=== PATIENT | male | born 2005 | race Caucasian/White ===

== ENCOUNTER 2023-06-19 13:47 | Inpatient (IN) | payer MEDICAID, OTHER ==
--- NOTE | 2023-06-19 16:23 | ED ---
Psych HPI - General Chief Complaint: Psychiatric Symptoms Stated Complaint: alt mental state Source: patient, family, RN notes reviewed Mode of arrival: ambulatory - History of Present Illness Initial Comments: PatientPatient presents with suicidal thoughts. Patient states he considered overdosing yesterday. Denies any homicidality. No recent illness. Long history of substance abuse. Has not used in several weeks.He denies any homicidality. No recent ingestion of alcohol or illicit drugs. No headache, no fever or chills, no changes in vision or hearing, no sore throat or difficulty with speech, no neck pain, no chest pain or shortness of breath, no abdominal pain, no nausea or vomiting, no changes in urination or bowel movements, no numbness or tingling, no extremity pain, no skin rashes or lesions. Past medical, surgical, social, and family history reviewed. Complaint: suicidal ideation - Related Data Allergies Allergy/AdvReac Type Severity Reaction Status Date / Time Penicillins Allergy Rash/Hives Verified 06/19/23 13:53 Review of Systems ROS Statement: Those systems with pertinent positive or pertinent negative responses have been documented in the HPI. ROS Other: All systems not noted in ROS Statement are negative. Past Medical History Past Medical History: No Reported History Past Surgical History: No Surgical Hx Reported Past Psychological History: Depression Smoking Status: Current every day smoker Past Alcohol Use History: Heavy Past Drug Use History: Prescription Drug Abuse General Exam - General Exam Comments Initial Comments: Does not appear to be ill or toxic. Alert and oriented 4, cranial nerves II through XII grossly intact. Limitations: no limitations General appearance: alert, in no apparent distress Head exam: Present: atraumatic, normocephalic, normal inspection Eye exam: Present: normal appearance, PERRL, EOMI. Absent: scleral icterus, conjunctival injection, periorbital swelling ENT exam: Present: normal exam, mucous membranes moist Neck exam: Present: normal inspection. Absent: tenderness, meningismus, lymphad enopathy Respiratory exam: Present: normal lung sounds bilaterally. Absent: respiratory distress, wheezes, rales, rhonchi, stridor Cardiovascular Exam: Present: regular rate, normal rhythm, normal heart sounds. Absent: systolic murmur, diastolic murmur, rubs, gallop, clicks GI/Abdominal exam: Present: soft, normal bowel sounds. Absent: distended, tenderness, guarding, rebound, rigid Extremities exam: Present: normal inspection, full ROM, normal capillary refill. Absent: tenderness, pedal edema, joint swelling, calf tenderness Back exam: Present: normal inspection Neurological exam: Present: alert, oriented X3, CN II-XII intact Psychiatric exam: Present: normal affect, normal mood Skin exam: Present: warm, dry, intact, normal color. Absent: rash Course Vital Signs 06/19/23 13:50 Temperature 98 F Pulse Rate 82 Respiratory 20 Rate Blood Pressure 150/100 O2 Sat by Pulse 98 Oximetry Medical Decision Making - Medical Decision Making Visual Physical Exam Vital signs reviewed General: Well-appearing, nontoxic, no acute distress. Head: Normocephalic, atraumatic Eyes: PERRLA, EOMI ENT: Airway patent Chest: Nonlabored breathing Skin: No visual rash, normal skin tone Neuro: Alert and oriented 3 Musculoskeletal: No gross abnormalities Signed, Jayro Moreno PA-C Was pt. sent in by a medical professional or institution? @ -[No] Did you speak to anyone other than the patient for history? @ -EPS nurse, mother Did you review nursing and triage notes? @ -agree Were old charts reviewed? @ -no Differential Diagnosis? @ -Differential diagnosis includes but not limited to: Depression, bipolar disorder, other psychiatric disorder, suicidal ideation, suicidal thoughts. Does not appear to be consistent with other systemic disease. EKG interpreted by me (3pts min.)? @ -[none] X-rays interpreted by me (1pt min.)? @ -[none] CT interpreted by me (1pt min.)? @ -[none] U/S interpreted by me (1pt. min.)? @ -[none] What testing was considered but not performed? (CT, X-rays, U/S, labs)? Why? @ Baseline laboratory investigations such as CBC, CMP. However I did not feel this would change clinical course or disposition. What meds were considered but not given? Why? @ -[none] Did you discuss the management of the patient with other professionals? @ -[facility] nurse Did you reconcile home meds? @ -[none] Was smoking cessation discussed for >3mins.? @ -[none] Was critical care preformed (if so, how long)? @ -[none] Were there social determinants of health that impacted care today? How? (Homelessness, low income, unemployed, alcoholism, drug addiction, transportation, low edu. Level, literacy, decrease access to med. care, correction, rehab)? @ -Depression, suicidal ideation Was there de-escalation of care discussed even if they declined? (Discuss DNR or withdrawal of care, Hospice)? @ -[Discuss DNR or withdrawal of care, Hospice?] What co-morbidities impacted this encounter? (DM, HTN, Smoking, COPD, CAD, Cancer, CVA, Hep., AIDS, mental health diagnosis, sleep apnea, morbid obesity)? @ - Was patient admitted / discharged? @ -Stable, admitted Undiagnosed new problem with uncertain prognosis? @ -Depression, suicidal ideation, uncertain prognosis Drug Therapy requiring intensive monitoring for toxicity (Heparin, Nitro, Insulin, Cardizem)? @ -[none] Were any procedures done? @ -[none] Diagnosis/symptom? @ -Suicidal ideation, depression Acute, or Chronic, or Acute on Chronic? @ -Acute/acute on chronic Uncomplicated (without systemic symptoms) or Complicated (systemic symptoms)? @ -Certainly could be a threat to life or bodily function if progressive Side effects of treatment? @ -[none] Exacerbation, Progression, or Severe Exacerbation] @ -[no] Poses a threat to life or bodily function? @ -See above patient voluntarily stating, unlikely. At this time. Patient admitted for a significantly. After discussion with the. Patient signed willingly. Patient's mother arrived to add an additional details for the EPS nurse Disposition Clinical Impression: Depression, Suicidal ideation Disposition: TRANSFER TO PSYCH HOSP/UNIT Condition: Stable Is patient prescribed a controlled substance at d/c from ED?: No When asked, does pt state using other controlled substances?: No If prescribed controlled substance>3 days was MAPS reviewed?: No If opioid is for acute pain is fill amount 7 days or less?: No If Rx opioid, was Start Talking consent form obtained?: No Referrals: Mary Ellen Parks MD [Primary Care Provider] - 1-2 days
[2023-06-19] MEDS ORDERED: MAGNESIUM HYDROXIDE 2,400 MG/30 ML CUP PO PRN (23:23)
[2023-06-19] MEDS ORDERED: ACETAMINOPHEN TAB 325 MG TAB PO PRN (23:23)
[2023-06-19] MEDS ORDERED: MAG HYDROX/AL HYDROX/SIMETH 30 ML CUP PO PRN (23:23)
[2023-06-19] MEDS ORDERED: HALOPERIDOL LACTATE 5 MG/ML 1 ML VIAL IM PRN (23:25)
[2023-06-19] MEDS ORDERED: LORazepam 2 MG/ML INJ IM PRN (23:25)
[2023-06-19] MEDS ORDERED: traZODone HCL 50 MG TAB PO PRN (23:25)
[2023-06-19] MEDS ORDERED: LORazepam 1 MG TAB PO PRN (23:25)
[2023-06-19] MEDS ORDERED: haloperidoL 5 MG TAB PO PRN (23:25)
--- NOTE | 2023-06-20 02:11 | P.PN ---
Progress Note - Text Progress Note Date: 06/20/23 Attempted to see the patient in the mental health unit. Informed by the mental health unit RN that the patient is currently sedated and inappropriate for evaluation.
[2023-06-20] MEDS: NICOTINE 14MG/24HR PATCH TRANSDERM SCH (08:46)
[2023-06-20 11:23] LABS: Basophils % (A) 0 %; Eosinophils # (A) 0.1 k/uL (0-0.7); Eosinophils % (A) 1 %; HCT 49.1 % (39.0-53.0); HGB 16.7 gm/dL (13.0-17.5); Lymphocytes # (A) 1.7 k/uL (1.0-4.8); Lymphocytes % (A) 24 %; MCH 30.5 pg (25.0-35.0); MCHC 34.1 g/dL (31.0-37.0); MCV 89.4 fL (80.0-100.0); Mean Platelet Volume 7.4; Monocytes # (A) 0.5 k/uL (0-1.0); Monocytes % (A) 7 %; Neutrophils # (A) 4.8 k/uL (1.3-7.7); Neutrophils % (A) 66 %; Platelet Count 313 k/uL (150-450); RDW 12.1 % (11.5-15.5); WBC 7.2 k/uL (4.0-11.0)
--- NOTE | 2023-06-20 11:25 | P.HP ---
Psychiatric H&P - . H&P Date: 06/20/23 History & Physical: Allergies Allergy/AdvReac Type Severity Reaction Status Date / Time Penicillins Allergy Rash/Hives Verified 06/19/23 13:53 Vital Signs Temp 98.1 F 06/20/23 00:18 Pulse 72 06/20/23 00:18 Resp 18 06/20/23 00:18 BP 136/92 06/20/23 00:18 Pulse Ox 100 06/20/23 00:18 FiO2 Intake & Output 06/19/23 06/20/23 06/20/23 18:59 06:59 18:59 Weight 79.379 kg 79.435 kg Laboratory Last Values SARS-CoV-2 (PCR) Not Detected (Not Detectd) 06/19/23 20:59 06/20/23 09:40 IDENTIFYING DATA: Patient is a 17 y/o male, lives with his father in a house, in [facility] [place], single, no kids, employed as a contractor HPI: Patient presented to the hospital ED on 06/19, with suicidal thoughts, considering overdosing. He walked to the ED, stating he needed help. Patient claims that he "kind of lost his mind a little bit" States he was paranoid, having a flight of ideas, and swallowed a "bunch of percocets" Approx 10-12 pills, and vomited them up. Stressors include "losing his best friend" admits to being a heavy user of xanax, and quit cold turkey about 3 weeks ago. states that he is using up to 7 mg total a day of xanax. Has been using them about 5 years. Patient has pending court cases coming up for theft which is causing him stress. Claims his mood today is "mellow" and feeling somewhat depressed and anxious. States his sleep is "ok", prior to last night, he couldn't sleep, appetite is poor. Patient denies any suicidal or homicidal ideations intent or plan. At this time patient denies any auditory or visual hallucinations. Patient denies any flight of ideas racing thoughts and increased in goal directed behavior. Patient admits to using xanax,alcohol occasionally, marijuama occasionally. and is a smoker. Long history of substance abuse. Patient was counselled on substance abuse and desired to cut back on use PAST PSYCHIATRIC HISTORY:denies, however states that he was diagnosed with severe depression at age 14, and tried Lexapro, and took it about a year, and felt it didn't help. denies any previous suicide attempts. no inpatiwent psych admissions. PMH: as per ED note. ALLERGIES: as per EMR CHEMICAL DEPENDENCY HISTORY: as per HPI FAMILY PSYCHIATRIC/SUBSTANCE USE HISTORY: dads side has depression/bipolar. paternal Grandfather committed suicide SOCIAL HISTORY: Patient was born in [place], raised in [place]. High School Graduate, never incarcerated, Patient has pending court cases coming up for theft. . Works as a contractor, lives with his father in [place] in a house. No children. MENTAL STATUS EXAM: General Appearance: Patient appears to be stated age is alert, short hair, childers. acme. well groomed, directable, and attempts to cooperate. Patient appears to have good hygiene and grooming.Good eye contact. Behavior: Patient is seated without any agitated behavior. Speech: Patient's speech is fluent and nonpressured. Mood/Affect: Patient reports their mood is depressed, affect is congruent and appropriate. Suicidality/Homicidality: Patient denies having any homicidal ideation intent or plan. Denies any suicidal ideations intent or plan Perceptions: Patient denies any visual hallucinations and denies any auditory hallucinations Though content/process: There is no evidence of any delusional thought content and thought process is linear and goal-directed. Memory and concentration: AOX3, grossly intact for the purposes of this session. Can spell "WORLD" backwards Judgment and insight: poor STRENGTHS/WEAKNESSES: strength is that patient is resilient. Weakness is that patient has poor judgment and is impulsive INTELLECT: average IMPRESSIONS: major depressive disorder with out psychotic features Benzodiazipine disorder opioid abuse Cannabis use disorder, mild nicotine dependance. PLAN: -Patient is admitted under voluntary status to MHU for stabilization of psychiatric symptoms and safety. Patient has signed adult voluntary form and medication consent and is placed in patient's chart. -Medications : Will start patient on trazadone 50 qhs for sleep/mood Zoloft 50mg daily for mood stabilization -Ativan [and Haldol] PRN for agitation/aggression -Patient was counselled on substance abuse and desired to cut back on use] -Patient was informed of the risks, benefits and side effects of the medication and patient verbally consented to taking the medications. Patient signed med consent form and was placed in chart. -Internal Medicine consult to perform medical evaluation and physical. -NRT - [nicotine patch] -SW on board for discharge planning. Encourage patient to participate in groups to work on coping skills. 06/20/23 11:21
[2023-06-20 11:43] LABS: ALT 17 U/L (4-49); AST 22 U/L (17-59); African American GFR (CKD) >90 (>60 ml/min/1.73 sqM); Albumin 5.4 g/dL (3.5-5.0); Alkaline Phosphatase 98 U/L (38-126); Anion Gap 17 mmol/L; Blood Urea Nitrogen 21 mg/dL (9-20); Calcium 10.6 mg/dL (8.4-10.2); Carbon Dioxide 22 mmol/L (22-30); Chloride 101 mmol/L (98-107); Glucose 93 mg/dL (74-99); Non-African American GFR(CKD) >90 (>60 ml/min/1.73 sqM); Potassium 4.4 mmol/L (3.5-5.1); Sodium 140 mmol/L (137-145); Total Bilirubin 0.9 mg/dL (0.2-1.3); Total Protein 8.5 g/dL (6.3-8.2)
[2023-06-20] MEDS: SERTRALINE 50 MG TAB PO SCH (12:22)
[2023-06-20] MEDS ORDERED: traZODone HCL 50 MG TAB PO SCH (21:00)
--- NOTE | 2023-06-21 01:48 | P.CONS ---
History of Present Illness - Reason for Consult Consult date: 06/21/23 - History of Present Illness The patient is a 17-year-old male with no known PMH who presents to the emergency room with complaints of depression and suicidal ideation. The patient was admitted to the mental health unit where he was seen and evaluated. Patient states that he has been abusing Xanax for the past several years, consuming 6 mg a day. Reports that he quit roughly 2 weeks ago and then had a manic episode. He reports feeling better at the time of interview and had no active complaints. He denies any medical conditions. Also denies alcohol or tobacco use. Denies experiencing chest discomfort, shortness of breath, fever, chills, cough, nausea, vomiting, abdominal pain, diarrhea. Review of systems: Pertinent positives and negatives as discussed in HPI, a complete review of systems was performed and all other systems are negative. Physical examination: General: non toxic, no distress, appears at stated age, normal weight Derm: no unusual rashes/lesions, no unusual ecchymoses, warm, dry Head: atraumatic, normocephalic, symmetric Eyes: EOMI, no lid lag, anicteric sclera ENT: Nose and ears atraumatic, no thrush, no pharyngeal erythema Neck: trachea midline, supple Mouth: no lip lesion, mucus membranes moist Cardiovascular: S1S2 reg, no murmur, no edema Lungs: CTA bilateral, no rhonchi, no rales , no accessory muscle use Abdominal: soft, nontender to palpation, no guarding Ext: no gross muscle atrophy, no contractures, Neuro: No gross focal neuro deficits noted Psych: Alert, oriented, appropriate affect Assessment: Benzodiazepine abuse Depression and suicidal ideation Imaging: None performed Data Review: Laboratory evaluation was reviewed with TSH 1.080, BUN 21, and calcium 10.6 Plan: Patient currently 2 weeks out from his last Xanax use Advised on importance of continued cessation Defer management of depression and suicidal ideation to the primary psychiatry service Thank you for allowing us to participate in the care of this patient. We will follow peripherally. Do not hesitate to contact us with questions. Someone can be reached from the [facility] hospitalist group at all hours of the day at [phone]. Past Medical History Past Medical History: No Reported History History of Any Multi-Drug Resistant Organisms: None Reported Past Surgical History: No Surgical Hx Reported Past Anesthesia/Blood Transfusion Reactions: No Reported Reaction Past Psychological History: Depression Smoking Status: Vaper Past Alcohol Use History: Occasional Past Drug Use History: Prescription Drug Abuse - Past Family History Father Family Medical History: No Reported History Mother Family Medical History: No Reported History Medications and Allergies Allergies Allergy/AdvReac Type Severity Reaction Status Date / Time Penicillins Allergy Rash/Hives Verified 06/19/23 13:53 Results CBC & Chem 7: 06/20/23 10:47 06/20/23 10:47 Labs: Abnormal Lab Results - Last 24 Hours (Table) 06/20/23 Range/Units 10:47 BUN 21 H (9-20) mg/dL Calcium 10.6 H (8.4-10.2) mg/dL Total Protein 8.5 H (6.3-8.2) g/dL Albumin 5.4 H (3.5-5.0) g/dL
[2023-06-21] MEDS: NICOTINE 14MG/24HR PATCH TRANSDERM SCH (08:15)
[2023-06-21] MEDS: SERTRALINE 50 MG TAB PO SCH (08:15)
[2023-06-21] MEDS ORDERED: hydrOXYzine pamoate 25 MG CAP PO PRN (10:56)
--- NOTE | 2023-06-21 11:07 | P.PN ---
Progress Note - Text Progress Note Date: 06/21/23 Interval History: Patient was seen wandering the hallways and was directable and agreeable to speak with medical technical writer in the office. [Patient states he's a little tired today, and that he had increased energy yesterday. Anxiety is "pretty damn bad", due to his upcoming court case, but his depression is improving. Appetite is ok, but is feeling a little nauseated. At this time patient denies any suicidal or homical ideations, intent or plan. Patient denies any auditory, visual hallucinations and denies any paranoia or delusions. Patient denies any side effects from the medications and has been compliant with meds. patient was asking about adding klonopin to help with anxiety, we spoke about the risks of tolerance/abuse given his history of xanax abuse, he was agreeable to try vistaril prn. Mental Status Exam: General Appearance: Patient appears to be stated age is alert, short hair, childers. acme. well groomed, directable, and attempts to cooperate. Patient appears to have good hygiene and grooming. Good eye contact. Behavior: Patient is calmly seated without any agitated behavior. Speech: Patient's speech is fluent and nonpressured. Mood/Affect: Mood is improving mildly, affect is congruent and appropriate Suicidality/Homicidality: Patient denies having any suicidal or homicidal ideation intent or plan. Perceptions: Patient denies any visual hallucinations and denies any auditory hallucinations Though content/process: There is no evidence of any delusional thought content and thought process is linear and goal-directed. 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 Plan: -Patient continues to meet criteria for inpatient psychiatric admission for symptom stabilization and safety. Patient has signed adult voluntary form and medication consent and was placed in patient's chart. -Medications: discontinue trazadone add Remeron 15 qhs for sleep, increase Zoloft 75mg daily for mood stabilization add Visteral 25mg [id number] prn for anxiety -When necessary Ativan and Haldol for agitation/aggression. -NRT - nicotine patch -SW on board for discharge planning. Encouraged the patient to participate in milieu. Likely discharge early next week saturday or saturday, if patient continues to improve.
[2023-06-21] MEDS: MIRTAZAPINE 15 MG TAB PO SCH (20:32)
[2023-06-22] MEDS: SERTRALINE 25 MG TAB PO SCH (08:38)
[2023-06-22] MEDS: NICOTINE 14MG/24HR PATCH TRANSDERM SCH ×2 (08:38→15:20)
--- NOTE | 2023-06-22 09:31 | P.PN ---
Progress Note - Text Progress Note Date: 06/22/23 Interval History: Patient was seen wandering the hallways and was directable and agreeable to speak with machine sign writer in the office. Patient has been socializing with other patients. He claims that he is doing better today, increasing energy. States that his anxiety has been improving since yesterday. He claims that he was able to sleep a bit better last night with the Remeron once his hands seem dose. Claims that he is going to groups. At this time patient denies any suicidal or homical ideations, intent or plan. Patient denies any auditory, visual hallucinations and denies any paranoia or delusions. Patient denies any side effects from the medications and has been compliant with meds. Mental Status Exam: General Appearance: Patient appears to be stated age is alert, short hair, childers. acme. well groomed, directable, and attempts to cooperate. Patient appears to have good hygiene and grooming. Good eye contact. Behavior: Patient is calmly seated without any agitated behavior. Speech: Patient's speech is fluent and nonpressured. Mood/Affect: Mood is improving mildly, affect is congruent and appropriate Suicidality/Homicidality: Patient denies having any suicidal or homicidal ideation intent or plan. Perceptions: Patient denies any visual hallucinations and denies any auditory hallucinations Though content/process: There is no evidence of any delusional thought content and thought process is linear and goal-directed. Memory and concentration: AOX3, grossly intact for the purposes of this session Judgment and insight: Improving mildly Assessment major depressive disorder with out psychotic features Benzodiazipine disorder opioid abuse Cannabis use disorder, mild nicotine dependance. Plan: -Patient continues to meet criteria for inpatient psychiatric admission for symptom stabilization and safety. Patient has signed adult voluntary form and medication consent and was placed in patient's chart. -Medications: continue Remeron 15 qhs for sleep, Zoloft 75mg daily for mood stabilization, Visteral 25mg [id number] prn for anxiety -When necessary Ativan and Haldol for agitation/aggression. -NRT - nicotine patch -SW on board for discharge planning. Encouraged the patient to participate in milieu. Likely discharge early next week saturday or saturday, if patient continues to improve.
[2023-06-22] MEDS: MIRTAZAPINE 15 MG TAB PO SCH (19:50)
[2023-06-23] MEDS: NICOTINE 14MG/24HR PATCH TRANSDERM SCH (08:24)
[2023-06-23] MEDS: SERTRALINE 25 MG TAB PO SCH (08:24)
[2023-06-23] MEDS ORDERED: LORazepam 0.5 MG TAB PO PRN (11:17)
--- NOTE | 2023-06-23 11:23 | P.PN ---
Progress Note - Text Progress Note Date: 06/23/23 Interval History: Patient was seen wandering the hallways and was directable and agreeable to speak with television writer in the office. Patient claims that he has been attending groups and has been watching TV with them and the other patients today. Claims that with regards to his mood he is doing better and also his anxiety as well. He did take an Ativan when necessary yesterday. We spoke about increasing the Zoloft dose 200 mg tomorrow and he is okay with that. Claims that he is sleeping better with the Remeron. Appetite is improving. At this time patient denies any suicidal or homical ideations, intent or plan. Patient denies any auditory, visual hallucinations and denies any paranoia or delusions. Patient denies any side effects from the medications and has been compliant with meds. Mental Status Exam: General Appearance: Patient appears to be stated age is alert, short hair, childers. acme. well groomed, directable, and attempts to cooperate. Patient appears to have good hygiene and grooming. Good eye contact. Behavior: Patient is calmly seated without any agitated behavior. Speech: Patient's speech is fluent and nonpressured. Mood/Affect: Mood is improving mildly, affect is congruent and appropriate Suicidality/Homicidality: Patient denies having any suicidal or homicidal ideation intent or plan. Perceptions: Patient denies any visual hallucinations and denies any auditory hallucinations Though content/process: There is no evidence of any delusional thought content and thought process is linear and goal-directed. Memory and concentration: AOX3, grossly intact for the purposes of this session Judgment and insight: Improving mildly Assessment major depressive disorder with out psychotic features Benzodiazipine disorder opioid abuse Cannabis use disorder, mild nicotine dependance. Plan: -Patient continues to meet criteria for inpatient psychiatric admission for symptom stabilization and safety. Patient has signed adult voluntary form and medication consent and was placed in patient's chart. -Medications: continue Remeron 15 qhs for sleep, increase Zoloft 100 mg daily for mood and anxiety, Visteral 25mg [id number] prn for anxiety -When necessary Ativan and Haldol for agitation/aggression. -NRT - nicotine patch -SW on board for discharge planning. Encouraged the patient to participate in milieu. Likely discharge saturday back home, if patient continues to improve. SW to call pts father and discuss safe home envt and discharge planning
[2023-06-23] MEDS: MIRTAZAPINE 15 MG TAB PO SCH (20:23)
[2023-06-24] MEDS: NICOTINE 14MG/24HR PATCH TRANSDERM SCH (08:08)
[2023-06-24] MEDS: SERTRALINE 100 MG TAB PO SCH (08:08)
[2023-06-24 08:25] VITALS: RESP 16
--- NOTE | 2023-06-24 11:53 | P.PN ---
Progress Note - Text Progress Note Date: 06/24/23 Interval History: Patient was seen wandering the hallways and was directable and agreeable to speak with publicity writer in the office. Patient claims that he has been attending groups. Claims that with regards to his mood he is "excellent" and also his anxiety getting better as well. Claims that he is sleeping alot better. Appetite much better, and is eating well. At this time patient denies any suicidal or homical ideations, intent or plan. Patient denies any auditory, visual hallucinations and denies any paranoia or delusions. Patient denies any side effects from the medications and has been compliant with meds. claims that he is speaking with his father over the phone about dishcarge possibly tomorrow Mental Status Exam: General Appearance: Patient appears to be stated age is alert, short hair, childers. acme. well groomed, directable, and attempts to cooperate. Patient appears to have good hygiene and grooming. Good eye contact. Behavior: Patient is calmly seated without any agitated behavior. Speech: Patient's speech is fluent and nonpressured. Mood/Affect: Mood is improving mildly, affect is congruent and appropriate Suicidality/Homicidality: Patient denies having any suicidal or homicidal ideation intent or plan. Perceptions: Patient denies any visual hallucinations and denies any auditory hallucinations Though content/process: There is no evidence of any delusional thought content and thought process is linear and goal-directed. Memory and concentration: AOX3, grossly intact for the purposes of this session Judgment and insight: Improving Assessment major depressive disorder with out psychotic features Benzodiazipine disorder opioid abuse Cannabis use disorder, mild nicotine dependance. Plan: -Patient continues to meet criteria for inpatient psychiatric admission for symptom stabilization and safety. Patient has signed adult voluntary form and medication consent and was placed in patient's chart. -Medications: Remeron 15 qhs for sleep, Zoloft 100 mg daily for mood and anxiety, Visteral 25mg [id number] prn for anxiety -When necessary Ativan and Haldol for agitation/aggression. -NRT - nicotine patch -SW on board for discharge planning. Encouraged the patient to participate in milieu. Likely discharge tomorrow, back home, if patient continues to improve. SW to call pts father and discuss safe home environment, and discharge planning
[2023-06-24] MEDS: MIRTAZAPINE 15 MG TAB PO SCH (20:27)
[2023-06-25 06:30] VITALS: BP 137/69; PULSE 80; TEMP 96.8
[2023-06-25] MEDS: SERTRALINE 100 MG TAB PO SCH (08:09)
[2023-06-25] MEDS: NICOTINE 14MG/24HR PATCH TRANSDERM SCH (08:10)
--- NOTE | 2023-06-25 12:34 | P.DS ---
Providers Date of admission: 06/19/23 23:09 Admission HPI: Admission note was completed by account underwriter Hospital course: Patient is a 17 y/o male, lives with his father in a house, in [facility], single, no kids, 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 He walked to the ED, stating he needed help. Patient claims that he "kind of lost his mind a little bit" States he was paranoid, having a flight of ideas, and swallowed a "bunch of percocets" Approx 10-12 pills, and vomited them up. Stressors include "losing his best friend" admits to being a heavy user of xanax, and quit cold turkey about 3 weeks ago. states that he is using up to 7 mg total a day of xanax. Has been using them about 5 years. Patient has pending court cases coming up for theft which is causing him stress. Claims his mood today is "mellow" and feeling somewhat depressed and anxious. States his sleep is "ok", prior to last night, he couldn't sleep, appetite is poor. Patient denies any suicidal or homicidal ideations intent or plan. At this time patient denies any auditory or visual hallucinations. Patient denies any flight of ideas racing thoughts and increased in goal directed behavior. Patient admits to using xanax,alcohol occasionally, marijuama occasionally. and is a smoker. Long history of substance abuse. Patient was counselled on substance abuse and desired to cut back on use Mental status exam: General Appearance: Patient appears to be stated age is alert, short hair, childers. acme. well groomed, directable, and attempts to cooperate. Patient appears to have good hygiene and grooming.Good eye contact. Behavior: Patient is calmly seated without any agitated behavior. Speech: Patient's speech is fluent and nonpressured. Mood/Affect: Patient reports their mood is depressed, improving, affect is congruent and appropriate Suicidality/Homicidality: Patient denies having any suicidal or homicidal ideation intent or plan. Perceptions: Patient denies any auditory or visual hallucinations. Though content/process: There is no evidence of any delusional thought content and thought process is linear and goal-directed. more future oriented. Memory and concentration: AOX3, grossly intact for the purposes of this session. Can spell "WORLD" backwards correctly. Judgment and insight: fair Impression: major depressive disorder with out psychotic features Benzodiazipine disorder opioid abuse Cannabis use disorder, mild nicotine dependance. Plan: -Continue with discharge today as patient has improved and stabilized psychiatrically and is not currently an imminent threat to himself and/or others. Patient will remain at chronically elevated risk for harm to self and/or others due to his impulsivity and polysubstance abuse. -Continue medications: Remeron 15 qhs for sleep, Zoloft 100 mg daily for mood and anxiety, Visteral 25mg [id number] prn for anxiety -Patient was counseled on the need for medication compliance and appropriate follow-up at mental health and also primary care for medical issues. Patient verbalized understanding and agreed. -Social work to [arrange for and conduct family meeting to ensure safety upon discharge and answer any questions/concerns.] Social work also to arrange for patients follow up appointments [with [facility]] for psychiatric care along with follow up with primary care provider. -Patient counseled on abstaining from recreational drugs and marijuana and alcohol. Was informed/educated on the adverse effects on their physical and mental health. [Patient verbally agreed and understood]. [Patient was offered substance abuse treatment however declined at this time.] -Patient was instructed to return to the hospital or seek immediate medical care if their psychiatric or medical symptoms do worsen or reoccur. [ Allergies Allergy/AdvReac Type Severity Reaction Status Date / Time Penicillins Allergy Rash/Hives Verified 06/19/23 13:53 Laboratory Results WBC 7.2 k/uL (4.0-11.0) 06/20/23 10:47 RBC 5.50 m/uL (4.30-5.90) 06/20/23 10:47 Hgb 16.7 gm/dL (13.0-17.5) 06/20/23 10:47 Hct 49.1 % (39.0-53.0) 06/20/23 10:47 MCV 89.4 fL (80.0-100.0) 06/20/23 10:47 MCH 30.5 pg (25.0-35.0) 06/20/23 10:47 MCHC 34.1 g/dL (31.0-37.0) 06/20/23 10:47 RDW 12.1 % (11.5-15.5) 06/20/23 10:47 Plt Count 313 k/uL (150-450) 06/20/23 10:47 MPV 7.4 06/20/23 10:47 Neutrophils % 66 % 06/20/23 10:47 Lymphocytes % 24 % 06/20/23 10:47 Monocytes % 7 % 06/20/23 10:47 Eosinophils % 1 % 06/20/23 10:47 Basophils % 0 % 06/20/23 10:47 Neutrophils # 4.8 k/uL (1.3-7.7) 06/20/23 10:47 Lymphocytes # 1.7 k/uL (1.0-4.8) 06/20/23 10:47 Monocytes # 0.5 k/uL (0-1.0) 06/20/23 10:47 Eosinophils # 0.1 k/uL (0-0.7) 06/20/23 10:47 Basophils # 0.0 k/uL (0-0.2) 06/20/23 10:47 Sodium 140 mmol/L (137-145) 06/20/23 10:47 Potassium 4.4 mmol/L (3.5-5.1) 06/20/23 10:47 Chloride 101 mmol/L (98-107) 06/20/23 10:47 Carbon Dioxide 22 mmol/L (22-30) 06/20/23 10:47 Anion Gap 17 mmol/L 06/20/23 10:47 BUN 21 mg/dL (9-20) H 06/20/23 10:47 Creatinine 1.05 mg/dL (0.66-1.25) 06/20/23 10:47 Est GFR (CKD-EPI)AfAm >90 (>60 ml/min/1.73 sqM) 06/20/23 10:47 Est GFR (CKD-EPI)NonAf >90 (>60 ml/min/1.73 sqM) 06/20/23 10:47 Glucose 93 mg/dL (74-99) 06/20/23 10:[address] Glu mg/dL 97 mg/dL 06/20/23 10:47 Hemoglobin A1c 5.0 % (<=6.0) 06/20/23 10:47 Calcium 10.6 mg/dL (8.4-10.2) H 06/20/23 10:47 Total Bilirubin 0.9 mg/dL (0.2-1.3) 06/20/23 10:47 AST 22 U/L (17-59) 06/20/23 10:47 ALT 17 U/L (4-49) 06/20/23 10:47 Alkaline Phosphatase 98 U/L (38-126) 06/20/23 10:47 Total Protein 8.5 g/dL (6.3-8.2) H 06/20/23 10:47 Albumin 5.4 g/dL (3.5-5.0) H 06/20/23 10:47 TSH 1.080 mIU/L (0.465-4.680) 06/20/23 10:47 SARS-CoV-2 (PCR) Not Detected (Not Detectd) 06/19/23 20:59 Vital Signs Temp 96.8 F L 06/25/23 06:20 Pulse 80 06/25/23 06:20 Resp 16 06/24/23 08:09 BP 137/69 06/25/23 06:20 Pulse Ox 99 06/24/23 08:09 FiO2 Expected date of discharge: 06/25/23 Attending physician: Chevy Otero MD Consults: 06/19/23 23:23 Consult Physician Routine Consulting Provider: [facility] Consult Reason/Comments: H&P Do you want consulting provider notified?: Yes Primary care physician: Mary Ellen Parks MD - Discharge Diagnosis(es) (1) Major depressive disorder without psychotic features Status: Acute Priority: High (2) Moderate benzodiazepine use disorder Status: Acute Priority: High (3) Opioid abuse Status: Acute Priority: Medium (4) Cannabis use disorder, mild, abuse Status: Acute Priority: Medium (5) Nicotine dependence Status: Acute Priority: Low Hospital Course: Admission HPI: Admission note was completed by account underwriter, Patient is a 17 y/o male, lives with his father in a house, in [facility], single, no kids, 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 He walked to the ED, stating he needed help. Patient claims that he "kind of lost his mind a little bit" States he was paranoid, having a flight of ideas, and swallowed a "bunch of percocets" Approx 10-12 pills, and vomited them up. Stressors include "losing his best friend" admits to being a heavy user of xanax, and quit cold turkey about 3 weeks ago. states that he is using up to 7 mg total a day of xanax. Has been using them about 5 years. Patient has pending court cases coming up for theft which is causing him stress. Claims his mood today is "mellow" and feeling somewhat depressed and anxious. States his sleep is "ok", prior to last night, he couldn't sleep, appetite is poor. Patient denies any suicidal or homicidal ideations intent or plan. At this time patient denies any auditory or visual hallucinations. Patient denies any flight of ideas racing thoughts and increased in goal directed behavior. Patient admits to using xanax,alcohol occasionally, marijuama occasionally. and is a smoker. Long history of substance abuse. Patient was counselled on substance abuse and desired to cut back on use Hospital course: Upon admission to the unit patient was [directable and agreeable to commence treatment and signed adult voluntary form] . Patient got along well with other patients on the unit and followed unit protocol. Patient was compliant with the medications and denied any side effects throughout hospital course. Patient was started on Remeron 15 mg daily at bedtime for insomnia/mood, Zoloft 100 mg daily for mood/anxiety, Vistaril when necessary for anxiety.. Patient spoke of [his] stressors and engaged in therapy both group and individual. Patient was also seen by medical team for history and physical exam. [] Throughout the course of the hospitalization patient gradually improved with regards to [mood, anxiety], sleep and [became more future oriented with improved insight and judgment]. On the day of discharge patient denied any suicidal or homicidal ideations intent or plan denied any auditory or visual hallucinations. Patient endorsed wanting t o live for [his health and family.] The patient denied any access to guns or weapons. Patient denied any paranoia and did not endorse any delusions. Patient does have a significant history of substance abuse [and] was counseled on abstaining from all substances including alcohol and marijuana. [Patient was offered however declined inpatient substance-abuse rehab.] [Patient elected to do outpatient substance use treatment program through [facility].] Patient was also counseled on the medications and need for regular compliance and was encouraged to follow-up with their outpatient appointment for mental health and also for primary care. [Prior to discharge a family meeting will be arranged by social media strategist to answer any questions and ensure safety upon discharge.] Mental status exam: General Appearance: Patient appears to be tall, stated age is alert, pleasant, and cooperative. Patient is in no acute distress and has improved hygiene and grooming Behavior: Patient is calmly seated without any agitated behavior. Speech: Patient's speech is fluent and nonpressured. Mood/Affect: Patient reports their mood is "good", affect is congruent and euthymic. Suicidality/Homicidality: Patient denies having any suicidal or homicidal ideation intent or plan. Perceptions: Patient denies any auditory or visual hallucinations. Though content/process: There is no evidence of any delusional thought content and thought process is linear and goal-directed. [more future oriented] Memory and concentration: AOX3, grossly intact for the purposes of this session. Can spell "WORLD" backwards correctly. Judgment and insight: improved with guarded prognosis Impression: major depressive disorder with out psychotic features Benzodiazipine disorder opioid abuse Cannabis use disorder, mild nicotine dependance. Plan: -Continue with discharge today as patient has improved and stabilized psychiatrically and is not currently an imminent threat to himself and/or others. Patient will remain at chronically elevated risk for harm to self and/or others due to his impulsivity and substance abuse. -Continue medications: Remeron 15 qhs for sleep, Zoloft 100 mg daily for mood and anxiety -Patient was counseled on the need for medication compliance and appropriate follow-up at mental health and also primary care for medical issues. Patient verbalized understanding and agreed. -Social work to [arrange for and conduct family meeting to ensure safety upon discharge and answer any questions/concerns.] Social work also to arrange for patients follow up appointments for psychiatric care along with follow up with primary care provider. -Patient counseled on abstaining from recreational drugs and marijuana and alcohol. Was informed/educated on the adverse effects on their physical and mental health. [Patient verbally agreed and understood]. [Patient was offered substance abuse treatment however declined at this time.] -Patient was instructed to return to the hospital or seek immediate medical care if their psychiatric or medical symptoms do worsen or reoccur. Allergies Allergy/AdvReac Type Severity Reaction Status Date / Time Penicillins Allergy Rash/Hives Verified 06/19/23 13:53 Laboratory Results WBC 7.2 k/uL (4.0-11.0) 06/20/23 10:47 RBC 5.50 m/uL (4.30-5.90) 06/20/23 10:47 Hgb 16.7 gm/dL (13.0-17.5) 06/20/23 10:47 Hct 49.1 % (39.0-53.0) 06/20/23 10:47 MCV 89.4 fL (80.0-100.0) 06/20/23 10:47 MCH 30.5 pg (25.0-35.0) 06/20/23 10:47 MCHC 34.1 g/dL (31.0-37.0) 06/20/23 10:47 RDW 12.1 % (11.5-15.5) 06/20/23 10:47 Plt Count 313 k/uL (150-450) 06/20/23 10:47 MPV 7.4 06/20/23 10:47 Neutrophils % 66 % 06/20/23 10:47 Lymphocytes % 24 % 06/20/23 10:47 Monocytes % 7 % 06/20/23 10:47 Eosinophils % 1 % 06/20/23 10:47 Basophils % 0 % 06/20/23 10:47 Neutrophils # 4.8 k/uL (1.3-7.7) 06/20/23 10:47 Lymphocytes # 1.7 k/uL (1.0-4.8) 06/20/23 10:47 Monocytes # 0.5 k/uL (0-1.0) 06/20/23 10:47 Eosinophils # 0.1 k/uL (0-0.7) 06/20/23 10:47 Basophils # 0.0 k/uL (0-0.2) 06/20/23 10:47 Sodium 140 mmol/L (137-145) 06/20/23 10:47 Potassium 4.4 mmol/L (3.5-5.1) 06/20/23 10:47 Chloride 101 mmol/L (98-107) 06/20/23 10:47 Carbon Dioxide 22 mmol/L (22-30) 06/20/23 10:47 Anion Gap 17 mmol/L 06/20/23 10:47 BUN 21 mg/dL (9-20) H 06/20/23 10:47 Creatinine 1.05 mg/dL (0.66-1.25) 06/20/23 10:47 Est GFR (CKD-EPI)AfAm >90 (>60 ml/min/1.73 sqM) 06/20/23 10:47 Est GFR (CKD-EPI)NonAf >90 (>60 ml/min/1.73 sqM) 06/20/23 10:47 Glucose 93 mg/dL (74-99) 06/20/23 10:[address] Glu mg/dL 97 mg/dL 06/20/23 10:47 Hemoglobin A1c 5.0 % (<=6.0) 06/20/23 10:47 Calcium 10.6 mg/dL (8.4-10.2) H 06/20/23 10:47 Total Bilirubin 0.9 mg/dL (0.2-1.3) 06/20/23 10:47 AST 22 U/L (17-59) 06/20/23 10:47 ALT 17 U/L (4-49) 06/20/23 10:47 Alkaline Phosphatase 98 U/L (38-126) 06/20/23 10:47 Total Protein 8.5 g/dL (6.3-8.2) H 06/20/23 10:47 Albumin 5.4 g/dL (3.5-5.0) H 06/20/23 10:47 TSH 1.080 mIU/L (0.465-4.680) 06/20/23 10:47 SARS-CoV-2 (PCR) Not Detected (Not Detectd) 06/19/23 20:59 Vital Signs Temp 96.8 F L 06/25/23 06:20 Pulse 80 06/25/23 06:20 Resp 16 06/24/23 08:09 BP 137/69 06/25/23 06:20 Pulse Ox 99 06/24/23 08:09 FiO2 Patient Condition at Discharge: Stable Plan - Discharge Summary Discharge Rx Participant: Yes New Discharge Prescriptions: New Mirtazapine [Remeron] 15 mg PO HS 30 Days #30 tab Nicotine 14Mg/24Hr Patch [Habitrol] 1 patch TRANSDERM DAILY 14 Days #14 patch Sertraline [Zoloft] 100 mg PO DAILY 30 Days #30 tab Discharge Medication List Mirtazapine [Remeron] 15 mg PO HS 30 Days #30 tab 06/25/23 [Rx] Nicotine 14Mg/24Hr Patch [Habitrol] 1 patch TRANSDERM DAILY 14 Days #14 patch 06/25/23 [Rx] Sertraline [Zoloft] 100 mg PO DAILY 30 Days #30 tab 06/25/23 [Rx] Follow up Appointment(s)/Referral(s): Services, [facility] [Other] - 06/27/23 2:00 pm (Mr Gandara) Mary Ellen Parks MD [Primary Care Provider] - 1-2 days Patient Instructions/Handouts: How to Stop Smoking (DC), Benzodiazepine Abuse (DC), Depression (GEN), Cannabis Abuse (DC) Activity/Diet/Wound Care/Special Instructions: Avoid the use of street drugs and alcohol. Take all medications as prescribed. When you are in need of refills on your medications, please contact your medical provider and/or outpatient psychiatrist/provider to have this done. Please go to your scheduled outpatient appointment for aftercare treatment. If symptoms return or become worse, call the crisis line at and/or go to the nearest emergency room for evaluation. National Suicide Hotline 127. Discharge Disposition: HOME SELF-CARE
== END 2023-06-25 12:08 | disposition home or self-care (01) | DRG 754 ==
LOC: EC 13:47 → 3MHU 23:09
PROVIDERS: ADMIT Psychiatry & Neurology Psychiatry; ATTEND Psychiatry & Neurology Psychiatry
DX: F32.9 Major depressive disorder, single episode, unspecified (principal); F11.10 Opioid abuse, uncomplicated; F12.90 Cannabis use, unspecified, uncomplicated; F13.20 Sedative, hypnotic or anxiolytic dependence, uncomplicated; F17.200 Nicotine dependence, unspecified, uncomplicated; F41.9 Anxiety disorder, unspecified; G47.00 Insomnia, unspecified; R45.851 Suicidal ideations; Z79.899 Other long term (current) drug therapy; Z81.8 Family history of other mental and behavioral disorders; Z11.52 Encounter for screening for COVID-19
CPT/HCPCS: 80053; 82075; 83036; 84443; 85025; 87635; 99285